=== PATIENT | male | born 1980 | race Hispanic/Latino ===

== ENCOUNTER 2022-09-03 19:43 | Emergency (ER) | payer SELFPAY ==
[2022-09-03] MEDS ORDERED: Ketorolac Tromethamine 30 MG/ML VIAL ONE (20:43)
[2022-09-03] MEDS ORDERED: Azithromycin 250 MG TAB ONE (21:41)
== END 2022-09-03 22:23 | disposition home or self-care (01) ==
LOC: CSHERS 19:43
DX: J18.9 Pneumonia, unspecified organism (principal); F17.210 Nicotine dependence, cigarettes, uncomplicated
CPT/HCPCS: 71045; 96372; J1885